=== PATIENT | female | born 1990 | race Caucasian/White ===

== ENCOUNTER 2021-04-03 16:33 | Inpatient (IN) | payer BC ==
[~2021-04-03] VITALS: Ht 162.6 cm; Wt 108.9 kg
[~2021-04-03 16:33] MED LIST: FLINTSTONES1 EAC1 PO; LORTAB 5-325 M1 EACH PO; NORCO 5-325 TA1 EACH PO
[2021-04-03 17:19] LABS: HEMOGLOBIN 11.7 gm/dl (12.3-15.3); RED BLOOD COUNT 3.67 M/UL (4.00-5.10); WHITE BLOOD COUNT 8.7 K/UL (4.5-11.0)
[2021-04-04] MEDS ORDERED: IBUPROFEN800 MG PO (15:05)
[2021-04-04] MEDS ORDERED: HYDROCODON-ACE1 EAC4 PO (15:05)
[2021-04-04] MEDS ORDERED: DOCUSATE SODIU100 MG PO (15:05)
[2021-04-05 06:10] LABS: HEMOGLOBIN 10.7 gm/dl (12.3-15.3)
== END 2021-04-05 15:50 | disposition home or self-care (01) | DRG 807 ==
LOC: GENOP 16:33 → OB 17:31
PROVIDERS: ADMIT Obstetrics & Gynecology
PROC: 4A1HXCZ Monitoring of Products of Conception, Cardiac Rate, External Approach (ICD-10-PCS; 2021-04-03)
PROC: 10E0XZZ Delivery of Products of Conception, External Approach (ICD-10-PCS; principal; 2021-04-04)
PROC: 3E033VJ Introduction of Other Hormone into Peripheral Vein, Percutaneous Approach (ICD-10-PCS; 2021-04-04)
PROC: 10907ZC Drainage of Amniotic Fluid, Therapeutic from Products of Conception, Via Natural or Artificial Opening (ICD-10-PCS; 2021-04-04)
PROC: 0U7C7ZZ Dilation of Cervix, Via Natural or Artificial Opening (ICD-10-PCS; 2021-04-04)
DX: O42.92 Full-term premature rupture of membranes, unspecified as to length of time between rupture and onset of labor (principal); Z37.0 Single live birth; Z3A.38 38 weeks gestation of pregnancy; Z20.822 Contact with and (suspected) exposure to COVID-19; Z90.49 Acquired absence of other specified parts of digestive tract; Z88.0 Allergy status to penicillin
CPT/HCPCS: 36415; 51702; 81001; 82800; 85014; 85018; 85025; J2590; J7120